=== PATIENT | male | born 1945 | race Hispanic/Latino ===

== ENCOUNTER 2020-04-16 11:00 | Inpatient (IN) | payer MEDICARE ==
[~2020-04-16] VITALS: Ht 167.6 cm; Wt 82.8 kg
[2020-04-16 15:02] LABS: BASOPHILS % (AUTO) 0.3 % (0.0-5.0); EOSINOPHILS % (AUTO) 2.7 % (0.0-8.0); HEMATOCRIT 35.6 % (42-54); LYMPHOCYTES % (AUTO) 29.9 % (21.0-51.0); MEAN CORPUSCULAR HEMOGLOBIN 29.7 pg (27.0-33.0); MEAN CORPUSCULAR HGB CONC 34.8 g/dL (32.0-36.0); MEAN CORPUSCULAR VOLUME 85.2 fL (79-99); MONOCYTES % (AUTO) 6.8 % (3.0-13.0); NEUTROPHILS % (AUTO) 60.2 % (40.0-77.0); PLATELET COUNT (AUTO) 212 K/uL (130-400); RED BLOOD CELL COUNT(AUTO) 4.18 MIL/uL (4.50-6.20); RED CELL DISTRIBUTION WIDTH 12.5 % (11.0-15.5); WHITE BLOOD COUNT (AUTO) 7.9 K/uL (4.8-10.8)
[2020-04-16 15:13] LABS: CREATININE 1.2 mg/dL (0.5-1.5); POTASSIUM 4.7 mmol/L (3.5-5.1)
[2020-04-16 15:15] LABS: INR 0.97 (0.85-1.15); PROTHROMBIN TIME 10.5 SEC (9.6-11.6)
[2020-04-16 15:20] LABS: APPEARANCE,URINE Clear (CLEAR); BILIRUBIN,URINE Negative (NEGATIVE); COLOR,URINE Yellow (YELLOW); GLUCOSE, URINE (UA) Negative (NEGATIVE); KETONES,URINE Negative (NEGATIVE); LEUKOCYTE ESTERASE ,URINE Negative (NEGATIVE); NITRATE,URINE Negative (NEGATIVE); OCCULT BLOOD,URINE Negative (NEGATIVE); PROTEIN,URINE Negative (NEGATIVE); UROBILINOGEN,URINE 0.2 mg/dL (0.2-1.0)
--- NOTE | 2020-04-22 11:26 | NUR ---
RE: ABNORMAL LABS REPORTED HGB 12.4/HCT 35.6, NO NEW ORDERS RECEIVED. MAY PROCEED WITH SURGERY SCHEDULED.
[2020-04-22 13:58] VITALS: BP 186/67
[2020-04-22] MEDS ORDERED: PIOG15TA66 PO (16:02)
[2020-04-22] MEDS ORDERED: HYDR12.54 PO (16:02)
[2020-04-22] MEDS ORDERED: GLIM2TAB30 PO (16:02)
[2020-04-22] MEDS ORDERED: SIMV40TA59 PO (16:02)
[2020-04-22] MEDS ORDERED: METF-446 PO (16:02)
[2020-04-22] MEDS ORDERED: LOSA50TA64 PO (16:02)
[2020-04-22] MEDS ORDERED: AEC81 PO (16:02)
[2020-04-23] VITALS (23 sets, daily range): BP systolic 94–138; BP diastolic 41–63
[2020-04-23] MEDS ORDERED: CEFAZOLIN SODIUM 1 GM VIAL IVP SCH (05:00)
[2020-04-23] MEDS ORDERED: SODIUM CHLORIDE 0.9% 1000ML 1,000 ML IV ONE (07:33)
[2020-04-23] MEDS ORDERED: CELECOXIB 200 MG CAP ONE (10:42)
[2020-04-23] MEDS ORDERED: ACETAMINOPHEN EXTRA STRENGTH 500 MG TABLET ONE (10:43)
[2020-04-23] MEDS ORDERED: KETOROLAC TROMETHAMINE 30MG/ML ONE (10:46)
[2020-04-23] MEDS ORDERED: CEFAZOLIN SODIUM 1 GM VIAL ONE (11:21)
[2020-04-23] MEDS ORDERED: TRANEXAMIC ACID 1000MG/10ML ONE ×2 (11:21→16:05)
[2020-04-23] MEDS ORDERED: LIDOCAINE PF 2% 5ML ABBOJECT ONE (11:42)
[2020-04-23] MEDS ORDERED: DEXAMETHASONE SOD PHOSPHATE 10MG/ML 1ML VIAL ONE (11:42)
[2020-04-23] MEDS ORDERED: SUCCINYLCHOLINE CHLORIDE 20 MG/ML 10 ML VIAL ONE (11:42)
[2020-04-23] MEDS ORDERED: ONDANSETRON HCL 4 MG/2 ML VIAL ONE (11:42)
[2020-04-23] MEDS ORDERED: NEOSTIGMINE 5MG/5ML SYR IV ONE (11:43)
[2020-04-23] MEDS ORDERED: PROPOFOL 10 MG/ML 20ML VIAL IV ONE (11:43)
[2020-04-23] MEDS ORDERED: ROCURONIUM 10MG/1ML SYR 10 MG/ML ML ONE (11:43)
[2020-04-23] MEDS ORDERED: MIDAZOLAM HCL 1 MG/ML 2ML VIAL ONE (11:43)
[2020-04-23] MEDS ORDERED: GLYCOPYRROLATE 1 MG/5 ML SYRINGE ONE (11:43)
[2020-04-23] MEDS ORDERED: FENTANYL CITRATE PF 50 MCG/1 ML 2ML VIAL ONE (11:43)
[2020-04-23] MEDS ORDERED: ROPIVACAINE 0.5% 5MG/ML 30ML IJ ONE (11:50)
[2020-04-23] MEDS ORDERED: PHENYLEPHRINE HCL 10 MG/ML 1ML VIAL IV ONE (12:47)
[2020-04-23] MEDS ORDERED: MEPERIDINE-PF 25 MG/ML SYG ONE (15:18)
[2020-04-23] MEDS ORDERED: TRAMADOL HCL 50 MG TABLET PO PRN (15:30)
[2020-04-23] MEDS ORDERED: POTASSIUM CHLORIDE 20 MEQ ERTAB PO PRN (15:30)
[2020-04-23] MEDS: SODIUM CHLORIDE 0.9% 1000ML 1,000 ML IV SCH (15:30)
[2020-04-23] MEDS ORDERED: OXYCODONE HCL 5 MG TAB PO PRN (15:30)
[2020-04-23] MEDS ORDERED: POTASSIUM CHLORIDE 20MEQ/100ML 100 ML IV PRN (15:30)
[2020-04-23] MEDS ORDERED: KETOROLAC TROMETHAMINE 15MG/ML IV PRN (15:30)
[2020-04-23] MEDS ORDERED: CALCIUM CARBONATE 500 MG TABLET PO PRN (15:30)
[2020-04-23] MEDS ORDERED: LIDOCAINE HCL-MPF 1% 2ML VIAL IV PRN (15:30)
[2020-04-23] MEDS: ACETAMINOPHEN EXTRA STRENGTH 500 MG TABLET PO SCH (15:30)
[2020-04-23] MEDS ORDERED: DiphenhydrAMINE HCL 50 MG/ML VIAL IVP PRN (15:30)
[2020-04-23] MEDS ORDERED: POTASSIUM CHLORIDE 10% ELIXIR 20 MEQ/15 ML UDCUP PO PRN (15:30)
[2020-04-23] MEDS ORDERED: FERROUS FUMARATE 324 MG TABLET PO PRN (15:30)
[2020-04-23] MEDS ORDERED: ONDANSETRON HCL 4 MG/2 ML VIAL IVP PRN (15:30)
[2020-04-23] MEDS: INSULIN HUMULIN R 100 UNIT/ML 3ML SQ SCH ×2 (16:30→21:00)
[2020-04-23 17:41] LABS: APPEARANCE BODY FLUID BLOODY (CLEAR); COLOR,BODY FLUID RED (LT YELLOW); SPECIMENTYPE,BODY FLUID SYNOVIAL; TOTAL VOLUME,BODY FLUID 15 mL
[2020-04-23 17:42] LABS: BODY FLUID WBC 906 /cu. mm.
[2020-04-23 17:43] LABS: BODY FLUID RBC 11250 /cu. mm.
[2020-04-23 18:18] LABS: BF LYMPHOCYTE 12 %; BF MONOCYTE 10 %
--- NOTE | 2020-04-23 19:30 | NUR ---
PATIENT RECEIVED IN BED, AAOX3, NO ACUTE DISTRESS NOTED. PT IS POST REVISION RIGHT TKA. DRESSING IS D/I, WITH HEMOVAC NOTED. POC DISCUSSED WITH PATIENT. PATIENT IS D/T VOID. INSTRUCTED TO CALL FOR ASSISTANCE IF NEEDED, CALL HOBBS IS WITHIN REACH.
[2020-04-23] MEDS: CEFAZOLIN SODIUM 1 GM VIAL IVP SCH (21:12)
[2020-04-23] MEDS: CELECOXIB 200 MG CAP PO SCH (21:12)
[2020-04-23] MEDS: PREGABALIN 25 MG CAP PO SCH (21:15)
[2020-04-24] MEDS: ACETAMINOPHEN EXTRA STRENGTH 500 MG TABLET PO SCH ×4 (00:58→22:20)
[2020-04-24] MEDS: SODIUM CHLORIDE 0.9% 1000ML 1,000 ML IV SCH ×2 (01:30→11:30)
[2020-04-24 03:47] LABS: HEMATOCRIT 26.3 % (42-54); MEAN CORPUSCULAR HEMOGLOBIN 29.3 pg (27.0-33.0); MEAN CORPUSCULAR HGB CONC 34.2 g/dL (32.0-36.0); MEAN CORPUSCULAR VOLUME 85.7 fL (79-99); RED BLOOD CELL COUNT(AUTO) 3.07 MIL/uL (4.50-6.20); RED CELL DISTRIBUTION WIDTH 12.7 % (11.0-15.5); WHITE BLOOD COUNT (AUTO) 11.7 K/uL (4.8-10.8)
[2020-04-24 03:48] VITALS: BP 112/46
[2020-04-24 03:59] LABS: CREATININE 1.5 mg/dL (0.5-1.5); POTASSIUM 4.7 mmol/L (3.5-5.1)
[2020-04-24] MEDS: CEFAZOLIN SODIUM 1 GM VIAL IVP SCH (04:55)
[2020-04-24] MEDS: INSULIN HUMULIN R 100 UNIT/ML 3ML SQ SCH ×4 (07:30→21:00)
[2020-04-24 08:03] VITALS: BP 120/53
[2020-04-24] MEDS: OXYCODONE HCL 5 MG TAB PO PRN (08:15)
[2020-04-24] MEDS: METFORMIN HCL 500 MG TABLET PO SCH (08:58)
[2020-04-24] MEDS: TAMSULOSIN HCL 0.4 MG CAP.ER.24H PO SCH (08:59)
[2020-04-24] MEDS: APIXABAN 2.5 MG TABLET PO SCH ×2 (08:59→21:14)
[2020-04-24] MEDS ORDERED: NON-FORMULARY MEDICATION 1 EACH (Simvastatin (Zocor) 40 MG) PO SCH (09:00)
[2020-04-24] MEDS ORDERED: NON-FORMULARY MEDICATION 1 EACH (Metformin HCl 1,000 MG) PO SCH (09:00)
[2020-04-24] MEDS: HYDROCHLOROTHIAZIDE 25 MG TABLET PO SCH (09:00)
[2020-04-24] MEDS ORDERED: NON-FORMULARY MEDICATION 1 EACH (Hydrochlorothiazide 12.5 MG) PO SCH (09:00)
[2020-04-24] MEDS: PIOGLITAZONE HCL 15 MG TAB PO SCH (09:04)
[2020-04-24] MEDS: CELECOXIB 200 MG CAP PO SCH ×2 (09:04→21:14)
[2020-04-24] MEDS: GLIMEPIRIDE 2 MG TABLET PO SCH (09:05)
[2020-04-24] MEDS: FAMOTIDINE 20MG TAB 20 MG TAB PO SCH (09:05)
[2020-04-24] MEDS: LOSARTAN 50 MG TABLET PO SCH (09:05)
[2020-04-24] MEDS: PREGABALIN 25 MG CAP PO SCH ×2 (09:05→21:15)
[2020-04-24] MEDS: POLYETHYLENE GLYCOL 3350 17 GM POWD.PACK PO SCH (09:05)
[2020-04-24] MEDS: SIMVASTATIN 20 MG TABLET PO SCH (09:06)
[2020-04-24 11:24] VITALS: BP 110/59
[2020-04-24 16:25] VITALS: BP 114/48
--- NOTE | 2020-04-24 16:28 | NUR ---
cm note met with patient and state resides at home with spouse, uses a borrowed walker for ambulation. no other dme, no provider. dc plan isback home with spouse, states his 2 sons can assist at home. pt agreeable for home health and dme for walker and 3 in 1 chair. choice letter obtained. and referral faxed to in [facility], [facility], and in [facility], pending approval Addendum: 04/24/20 at 1630 by AMRIT SILVA CM Amended: Links added.
[2020-04-24 20:01] VITALS: BP 113/49
[2020-04-24 23:29] VITALS: BP 119/50
[2020-04-25 03:30] LABS: HEMATOCRIT 22.6 % (42-54); MEAN CORPUSCULAR HEMOGLOBIN 29.3 pg (27.0-33.0); MEAN CORPUSCULAR HGB CONC 34.5 g/dL (32.0-36.0); RED BLOOD CELL COUNT(AUTO) 2.66 MIL/uL (4.50-6.20); RED CELL DISTRIBUTION WIDTH 12.6 % (11.0-15.5); WHITE BLOOD COUNT (AUTO) 7.9 K/uL (4.8-10.8)
[2020-04-25 03:35] LABS: CREATININE 1.3 mg/dL (0.5-1.5)
[2020-04-25 04:04] VITALS: BP 108/49
[2020-04-25] MEDS: INSULIN HUMULIN R 100 UNIT/ML 3ML SQ SCH (05:24)
[2020-04-25] MEDS: ACETAMINOPHEN EXTRA STRENGTH 500 MG TABLET PO SCH (06:03)
[2020-04-25 08:00] VITALS: BP 119/49
[2020-04-25] MEDS: OXYCODONE HCL 5 MG TAB PO PRN (08:23)
[2020-04-25] MEDS: SIMVASTATIN 20 MG TABLET PO SCH (08:43)
[2020-04-25] MEDS: METFORMIN HCL 500 MG TABLET PO SCH (08:43)
[2020-04-25] MEDS: TAMSULOSIN HCL 0.4 MG CAP.ER.24H PO SCH (08:43)
[2020-04-25] MEDS: APIXABAN 2.5 MG TABLET PO SCH (08:44)
[2020-04-25] MEDS: GLIMEPIRIDE 2 MG TABLET PO SCH (08:44)
[2020-04-25] MEDS: FAMOTIDINE 20MG TAB 20 MG TAB PO SCH (08:44)
[2020-04-25] MEDS: LOSARTAN 50 MG TABLET PO SCH (08:44)
[2020-04-25] MEDS: POLYETHYLENE GLYCOL 3350 17 GM POWD.PACK PO SCH (08:44)
[2020-04-25] MEDS: CELECOXIB 200 MG CAP PO SCH (08:44)
[2020-04-25] MEDS: PIOGLITAZONE HCL 15 MG TAB PO SCH (08:44)
[2020-04-25] MEDS: HYDROCHLOROTHIAZIDE 25 MG TABLET PO SCH (08:44)
[2020-04-25] MEDS: PREGABALIN 25 MG CAP PO SCH (08:44)
[2020-04-25 11:54] VITALS: BP 112/47
[2020-04-25] MEDS ORDERED: FERR324T10 PO (14:40)
[2020-04-25] MEDS ORDERED: APIX2.5T PO (14:40)
[2020-04-25] MEDS ORDERED: HYDR-4060 PO (14:40)
--- NOTE | 2020-04-25 17:20 | NUR ---
PATIENT GIVEN DISCHARGE INSTRUCTIONS AND EDUCATION ON FOLLOW UP APPOINTMENT, NEW RX (ELIQUIS, NORCO, HEMOCYTE), WBAT, DENNYS DRESSING CARE AND REMOVAL DATE 05/01/20, AND S/SX TO REPORT TO MD. PATIENT VERBALIZED UNDERSTANDING OF ALL EDUCATION GIVEN VIA TEACH BACK, DENNYS DRESSING, CHANGED USING STERILE TECHNIQUE, NO ABNORMAL S/SX NOTED. NEW DENNYS DRESSING APPLIED, NEGATIVE PRESSURE ACTIVE, SEAL INTACT, RX VERIFIED, PHARMACY VERIFIED WITH PATIENT. IV DISCONTINUED, CATHETER INTACT. REPORT CALLED TO IBIS BALDERAS) AT [facility]. INSTRUCTION GIVEN ON FOLLOW UP APPOINTMENT, NEW RX (ELIQUIS, NORCO, HEMOCYTE), WBAT, DENNYS DRESSING, AND REMOVAL DATE 05/01/20, AND S/SX TO REPORT TO MD. ALL QUESTIONS ANSWERED ACCORDINGLY.
[2020-04-26] MEDS ORDERED: BISACODYL 10 MG SUPP.RECT RC PRN (15:30)
== END 2020-04-25 17:20 | disposition home health service (06) | DRG 467 ==
LOC: EDSTATUS 11:00 → DAHIP 04-23 06:51 → 3AH 04-23 17:22
PROVIDERS: ADMIT Orthopaedic Surgery; ATTEND Orthopaedic Surgery
PROC: 3E0T33Z Introduction of Anti-inflammatory into Peripheral Nerves and Plexi, Percutaneous Approach (ICD-10-PCS; 2020-04-23)
PROC: 0SPC0JZ Removal of Synthetic Substitute from Right Knee Joint, Open Approach (ICD-10-PCS; principal; 2020-04-23 12:40)
PROC: 0SRC0J9 Replacement of Right Knee Joint with Synthetic Substitute, Cemented, Open Approach (ICD-10-PCS; 2020-04-23 12:40)
PROC: 3E0T3BZ Introduction of Anesthetic Agent into Peripheral Nerves and Plexi, Percutaneous Approach (ICD-10-PCS; 2020-04-23 12:40)
DX: T84.092A Other mechanical complication of internal right knee prosthesis, initial encounter (principal); D62 Acute posthemorrhagic anemia; T84.84XA Pain due to internal orthopedic prosthetic devices, implants and grafts, initial encounter; I10 Essential (primary) hypertension; E78.5 Hyperlipidemia, unspecified; G89.29 Other chronic pain; I25.10 Atherosclerotic heart disease of native coronary artery without angina pectoris; E11.9 Type 2 diabetes mellitus without complications; Y79.2 Prosthetic and other implants, materials and accessory orthopedic devices associated with adverse incidents; Z20.828 Contact with and (suspected) exposure to other viral communicable diseases; W11.XXXA Fall on and from ladder, initial encounter; Y93.89 Activity, other specified; Y92.098 Other place in other non-institutional residence as the place of occurrence of the external cause; Y99.8 Other external cause status; Z95.1 Presence of aortocoronary bypass graft
CPT/HCPCS: 36415; 73564; 80048; 81003; 82948; 85025; 85027; 85610; 87070; 87076; 87205; 87641; 89051; 97039; A4606; G0378; J0330; J0690; J1100; J1815; J1885; J2001; J2175; J2250; J2370; J2405; J2704; J2710; J2795; J3010; J3490; J7030; J7120; U0003